=== PATIENT | male | born 1985 | race African-American/Black ===

== ENCOUNTER 2016-12-23 11:30 | Emergency (ER) | payer OTHER ==
[~2016-12-23] VITALS: Ht 165.1 cm; Wt 73.9 kg
[2016-12-23 11:53] VITALS: BP 118/79
--- NOTE | 2016-12-23 13:08 | RAD ---
Right shoulder, 3 views, 12/23/2016: History: Shoulder pain No fracture or dislocation is identified. No significant arthritic changes are seen. IMPRESSION: No significant right shoulder abnormality is detected.
[2016-12-23] MEDS ORDERED: BACL10TA PO (13:30)
[2016-12-23] MEDS ORDERED: TRAM-29 PO (13:30)
--- NOTE | 2016-12-23 13:30 | PHYS DOC ---
Past Medical History Past Medical History: No Pertinent History Past Surgical History: No Surgical History Smokin Pack Per Day Alcohol Use: None Drug Use: None Adult General Chief Complaint Chief Complaint: UPPER EXTREMITY PAIN HPI HPI Patient is a 31 year old male who presents with right shoulder pain for 2 weeks. He states that the pain started after doing heavy lifting at work. The pain radiates down the right arm. He denies any weakness or numbness associated with the pain. He was seen at last week and diagnosed with a pulled muscle. He states that they do not perform any x-rays. He was prescribed ibuprofen 600 mg and methocarbamol 500 mg. He states that these medications are not helping to control his pain. He denies any new injury. He does not have a PCP. Review of Systems Review of Systems Constitutional: Denies fever or chills. [] Respiratory: Denies cough or shortness of breath. [] Cardiovascular: Denies chest pain, palpitations or edema. [] Musculoskeletal: Denies back pain. Reports right shoulder pain. Integument: Denies rash or skin lesions. [] Neurologic: Denies headache, focal weakness or sensory changes. [] Allergies Allergies Allergies Coded Allergies Type Severity Reaction Last Updated Verified No Known Drug Allergies 06/25/15 No Physical Exam Physical Exam Constitutional: Well developed, well nourished, no acute distress, non-toxic appearance. [] HENT: Normocephalic, atraumatic, oropharynx moist. [] Eyes: PERRLA, EOMI, conjunctiva normal, no discharge. [] Neck: Normal range of motion, no midline or paraspinal tenderness, supple, no stridor. [] Skin: Warm, dry, no erythema, no rash. [] Back: No midline tenderness, no CVA tenderness. [] Extremities: Right scapular muscle tenderness, ROM intact, no edema. Distal pulses equal bilaterally. Less than 2 second capillary refill in the fingers. Light touch sensation intact distally. FROM of the elbow, wrist, and hand. Neurologic: Alert and oriented X 3, normal motor function, normal sensory function, no focal deficits noted. [] Psychologic: Affect normal, judgement normal, mood normal. [] Current Patient Data Vital Signs Vital Signs Date Time Temp Pulse Resp B/P Pulse Ox O2 Delivery O2 Flow Rate FiO2 12/23/16 11:53 98.1 91 18 99 Room Air 98.1 EKG EKG [] Radiology/Procedures Radiology/Procedures REASON: pain after heavy lifting PROCEDURE: SHOULDER 2+V RIGHT Right shoulder, 3 views, 12/23/2016: History: Shoulder pain No fracture or dislocation is identified. No significant arthritic changes are seen. IMPRESSION: No significant right shoulder abnormality is detected. Course & Med Decision Making Course & Med Decision Making Pertinent Labs and Imaging studies reviewed. (See chart for details) [] Dragon Disclaimer Dragon Disclaimer This electronic medical record was generated, in whole or in part, using a voice recognition dictation system. Departure Departure Impression: Primary Impression: Spasm of thoracic back muscle Additional Impression: Shoulder strain Disposition: HOME, SELF-CARE Condition: STABLE Referrals: NO PCP (PCP) Patient Instructions: Back Pain, Adult, [id number], Shoulder Pain, Easy-to- Read Additional Instructions: Your x-ray did not show any broken bones or dislocations. Please take the prescribed medications as directed. Do not drive or operate heavy machinery while taking pain medication or muscle relaxers. Please follow-up with the orthopedic doctor listed below if your pain continues. Return to the emergency department if you have any new or concerning symptoms. Scripts Baclofen 10 Mg [id number] Mg PO TID MUSCLE RELAXER #30 TAB Ref 0 Prov:JOSEPHINE SANTOS 12/23/16 Tramadol Hcl (Ultram)50 Mg [id number] Mg PO Q6H PRN PAIN #20 TAB Prov:JOSEPHINE SANTOS 12/23/16 Problem Qualifiers JOSEPHINE SANTOS Dec 23, 2016 13:30
== END 2016-12-23 13:36 | disposition home or self-care (01) ==
LOC: ER 11:30
DX: S46.911A Strain of unspecified muscle, fascia and tendon at shoulder and upper arm level, right arm, initial encounter (principal); S29.012A Strain of muscle and tendon of back wall of thorax, initial encounter; F17.200 Nicotine dependence, unspecified, uncomplicated; X50.0XXA Overexertion from strenuous movement or load, initial encounter; Y93.89 Activity, other specified; Y99.8 Other external cause status; Y92.89 Other specified places as the place of occurrence of the external cause
CPT/HCPCS: 73030; 99284

== ENCOUNTER 2017-05-17 09:25 | Emergency (ER) | payer OTHER ==
[~2017-05-17] VITALS: Ht 167.6 cm; Wt 68.0 kg
[~2017-05-17 09:25] MED LIST: BACL10TA PO; TRAM-48 PO
[2017-05-17] MEDS ORDERED: ASPIRIN CHEWABLE 81 MG TABLET. PO ONE (10:00)
[2017-05-17] MEDS ORDERED: ONDANSETRON PF 4 MG/2 ML VIAL. ONE (10:05)
[2017-05-17] MEDS ORDERED: ONDANSETRON PF 4 MG/2 ML VIAL. IV ONE (10:15)
[2017-05-17 10:20] LABS: BASO % 0 % (0-3); EOS % 2 % (0-3); HEMOGLOBIN 16.4 g/dL (13.0-17.5); LYMPH # 1.2 x10^3/uL (1.0-4.8); LYMPH % 16 % (24-48); MEAN CORPUSCULAR HEMOGLOBIN 33 pg (25-35); MEAN CORPUSCULAR HGB CONC 34 g/dL (31-37); MEAN CORPUSCULAR VOLUME 98 fL (79-100); MONO % 8 % (0-9); NEUT % 75 % (31-73); PLATELET COUNT 205 x10^3/uL (140-400); RED BLOOD COUNT 4.99 x10^6/uL (4.30-5.70); RED CELL DISTRIBUTION WIDTH 13.1 % (11.5-14.5); WHITE BLOOD COUNT 7.8 x10^3/uL (4.0-11.0)
[2017-05-17] MEDS ORDERED: IBUP-1027 PO (10:22)
--- NOTE | 2017-05-17 10:22 | PHYS DOC ---
Past Medical History Past Medical History: No Pertinent History Past Surgical History: No Surgical History Alcohol Use: Occasionally Drug Use: None Adult General Chief Complaint Chief Complaint: CHEST PAIN HPI HPI 31-year-old male presenting to the emergency department today with pain in his chest that is nonradiating intermittent present for the past 24 hours and without alleviating factors.The patient denies unilateral leg swelling hemoptysis family or personal history of blood clotting disorders. The pt denies recent immobilization or surgery. Review of systems is negative for nausea vomiting diaphoresis. Negative for hemoptysis, abdominal pain, fevers or chills. All other review of systems is negative unless otherwise noted in history of present illness. ED course: 31-year-old male with chest pain. Vital signs unremarkable. EKG reviewed by myself shows sinus rhythm with a regular rate. [place] normal. ST segments show ST abnormality consistent with benign early re-pole. Repeat EKG performed at 1003 similar to previous. Blood work obtained which was unremarkable. The patient was then discharged home in stable condition to follow up with their primary care physician over the next 2-3 days. They were to return if their symptoms worsened or if they were concerned for any reason. [id number] discharge instructions and return precautions were given. Patient' s questions were answered to their satisfaction. Patient is comfortable plan. Review of Systems Review of Systems SEE ABOVE. Current Medications Current Medications Current Medications Medications (Trade) Dose Ordered Sig/Timbo Start Time Stop Time Status Last Admin Dose Admin Aspirin (Children'S Aspirin) 324 mg 1X ONCE 05/17/17 10:00 05/17/17 10:01 DC 05/17/17 10:09 324 MG Ondansetron HCl (Zofran) 4 mg 1X ONCE 05/17/17 10:15 05/17/17 10:16 DC 05/17/17 10:09 4 MG Allergies Allergies Allergies Coded Allergies Type Severity Reaction Last Updated Verified No Known Drug Allergies 06/25/15 No Physical Exam Physical Exam SEE ABOVE Constitutional: Well developed, well nourished, no acute distress, non-toxic appearance. [] HENT: Normocephalic, atraumatic, bilateral external ears normal, oropharynx moist, no oral exudates, nose normal. [] Eyes: PERRLA, EOMI, conjunctiva normal, no discharge. [] Neck: Normal range of motion, no tenderness, supple, no stridor. [] Cardiovascular:Heart rate regular rhythm, no murmur [] Lungs & Thorax: Bilateral breath sounds clear to auscultation [] Abdomen: Bowel sounds normal, soft, no tenderness, no masses, no pulsatile masses. [] Skin: Warm, dry, no erythema, no rash. [] Back: No tenderness, no CVA tenderness. [] Extremities: No tenderness, no cyanosis, no clubbing, ROM intact, no edema. [] Neurologic: Alert and oriented X 3, normal motor function, normal sensory function, no focal deficits noted. [] Psychologic: Affect normal, judgement normal, mood normal. [] Current Patient Data Vital Signs Vital Signs Date Time Temp Pulse Resp B/P (MAP) Pulse Ox O2 Delivery O2 Flow Rate FiO2 05/17/17 09:27 98.0 68 18 141/71 (94) 97 Room Air 98.0 Lab Values Laboratory Tests Test 05/17/17 10:00 White Blood Count 7.8 x10^3/uL (4.0-11.0) Red Blood Count 4.99 x10^6/uL (4.30-5.70) Hemoglobin 16.4 g/dL (13.0-17.5) Hematocrit 49.0 % (39.0-53.0) Mean Corpuscular Volume 98 fL (79-100) Mean Corpuscular Hemoglobin 33 pg (25-35) Mean Corpuscular Hemoglobin Concent 34 g/dL (31-37) Red Cell Distribution Width 13.1 % (11.5-14.5) Platelet Count 205 x10^3/uL (140-400) Neutrophils (%) (Auto) 75 % (31-73) H Lymphocytes (%) (Auto) 16 % (24-48) L Monocytes (%) (Auto) 8 % (0-9) Eosinophils (%) (Auto) 2 % (0-3) Basophils (%) (Auto) 0 % (0-3) Neutrophils # (Auto) 5.8 x10^3uL (1.8-7.7) Lymphocytes # (Auto) 1.2 x10^3/uL (1.0-4.8) Monocytes # (Auto) 0.6 x10^3/uL (0.0-1.1) Eosinophils # (Auto) 0.1 x10^3/uL (0.0-0.7) Basophils # (Auto) 0.0 x10^3/uL (0.0-0.2) Sodium Level 136 mmol/L (136-145) Potassium Level 4.0 mmol/L (3.5-5.1) Chloride Level 100 mmol/L (98-107) Carbon Dioxide Level 26 mmol/L (21-32) Anion Gap 10 (6-14) Blood Urea Nitrogen 11 mg/dL (8-26) Creatinine 1.0 mg/dL (0.7-1.3) Estimated GFR (Cockcroft-Gault) 106.9 Glucose Level 124 mg/dL (70-99) H Calcium Level 9.6 mg/dL (8.5-10.1) Total Bilirubin 0.5 mg/dL (0.2-1.0) Direct Bilirubin 0.1 mg/dL (0.0-0.2) Aspartate Amino Transferase (AST) 20 U/L (15-37) Alanine Aminotransferase (ALT) 23 U/L (16-63) Alkaline Phosphatase 76 U/L (46-116) Troponin I Quantitative < 0.017 ng/mL (0.000-0.055) Total Protein 7.9 g/dL (6.4-8.2) Albumin 3.8 g/dL (3.4-5.0) Lipase 166 U/L (73-393) Laboratory Tests 05/17/17 10:00 Laboratory Tests 05/17/17 10:00 EKG EKG [] Radiology/Procedures Radiology/Procedures [] Course & Med Decision Making Course & Med Decision Making Pertinent Labs and Imaging studies reviewed. (See chart for details) [] Dragon Disclaimer Dragon Disclaimer This electronic medical record was generated, in whole or in part, using a voice recognition dictation system. Departure Departure Impression: Primary Impression: Chest pain Disposition: HOME, SELF-CARE Condition: STABLE Referrals: NO PCP (PCP) GUY BOLANOS MD Patient Instructions: Chest Pain (Nonspecific) Additional Instructions: Thank you for allowing us to participate in your care today. Followup with your primary care physician in 3 days if your symptoms do not improve. Call your Primary Doctor tomorrow and inform them of your visit today. If you do not have a primary care provider you can ask for a list of our primary care providers. Return to the emergency department you have any new or concerning findings. This should be evaluated by the primary care physician and any necessary consulting services for continued management within a few days after discharge. Return to emergency room if you have any new or concerning symptoms including but not limited to fever, chills, nausea, vomiting, intractable pain, any new rashes, chest pain, shortness of air, uncontrolled bleeding, difficulty breathing, and/or vision loss. Scripts Ibuprofen (IBUPROFEN) 400 Mg Tablet 200 MG PO PRN Q6HRS Y for PAIN, #10 TAB Prov: MAI NEWSOME MD 05/17/17 MAI NEWSOME MD May 17, 2017 10:22
[2017-05-17 10:24] LABS: CALCIUM 9.6 mg/dL (8.5-10.1); GFR 106.9
[2017-05-17 10:35] LABS: ALBUMIN 3.8 g/dL (3.4-5.0); DIRECT BILIRUBIN 0.1 mg/dL (0.0-0.2); TOTAL BILIRUBIN 0.5 mg/dL (0.2-1.0); TOTAL PROTEIN 7.9 g/dL (6.4-8.2)
--- NOTE | 2017-05-17 10:35 | RAD ---
EXAM: CHEST 2 VIEWS History: Mid chest pain COMPARISON: None available. TECHNIQUE: PA and lateral chest radiographs FINDINGS: The cardiomediastinal silhouette is within normal limits. The lungs are clear bilaterally. The costophrenic sulci are clear and well demarcated bilaterally. IMPRESSION: No radiographic evidence of an acute cardiopulmonary abnormality.
[2017-05-17 11:00] VITALS: BP 122/79
--- NOTE | 2017-05-17 13:18 | EKG ---
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
--- NOTE | 2017-05-17 13:28 | EKG ---
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
[2017-05-18] MEDS ORDERED: RANI150T6 PO (00:08)
== END 2017-05-17 11:10 | disposition home or self-care (01) ==
LOC: ER 09:25
DX: R07.89 Other chest pain (principal)
CPT/HCPCS: 36415; 71020; 80048; 80076; 83690; 84484; 85025; 93005; 96374; 99285; J2405

== ENCOUNTER 2017-05-17 20:18 | Emergency (ER) | payer OTHER ==
[~2017-05-17] VITALS: Ht 167.6 cm; Wt 68.0 kg
[~2017-05-17 20:18] MED LIST changes: +IBUP-1027 PO
[2017-05-17 21:40] LABS: BASO % 1 % (0-3); EOS % 2 % (0-3); HEMATOCRIT 45.5 % (39.0-53.0); HEMOGLOBIN 15.6 g/dL (13.0-17.5); LYMPH # 1.9 x10^3/uL (1.0-4.8); LYMPH % 22 % (24-48); MEAN CORPUSCULAR HEMOGLOBIN 34 pg (25-35); MEAN CORPUSCULAR HGB CONC 34 g/dL (31-37); MEAN CORPUSCULAR VOLUME 98 fL (79-100); MONO % 11 % (0-9); NEUT % 66 % (31-73); PLATELET COUNT 195 x10^3/uL (140-400); RED BLOOD COUNT 4.63 x10^6/uL (4.30-5.70); WHITE BLOOD COUNT 8.7 x10^3/uL (4.0-11.0)
[2017-05-17 21:51] LABS: CREATININE 1.1 mg/dL (0.7-1.3); GFR 95.8; POTASSIUM 3.5 mmol/L (3.5-5.1)
[2017-05-17 21:56] LABS: ALBUMIN 3.6 g/dL (3.4-5.0); ALBUMIN/GLOBULIN RATIO 0.9 (1.0-1.7); TOTAL BILIRUBIN 0.6 mg/dL (0.2-1.0); TOTAL PROTEIN 7.5 g/dL (6.4-8.2)
[2017-05-17] MEDS ORDERED: LIDO:MAALOX:DONNATAL 1:1:1 15 ML SINGLE DOSE SWSW ONE (22:00)
[2017-05-17] MEDS ORDERED: ONDANSETRON ODT 4 MG TAB.RAPDIS. PO ONE (22:00)
--- NOTE | 2017-05-17 22:16 | RAD ---
Abdominal ultrasound Limited: Reason for examination: Right upper quadrant/Epigastric pain. No abnormality seen at the pancreas. The pancreatic duct is normal in caliber at 1 mm. No abnormality seen at the inferior vena cava. The liver is normal in size at 14.9 cm without a focal lesion. There is normal portal venous flow. Gallbladder shows no cholelithiasis, sludge or gallbladder wall thickening. Common bile duct is normal in caliber at 2.4 mm. Right kidney measures 9.2 x 4.0 x 4.3 cm in greatest dimension and shows normal cortical medullary differentiation with no mass or hydronephrosis and shows good vascular flow. IMPRESSION: No focal abnormality seen in the right upper quadrant. Electronically signed by: Clara Enamorado MD (05/17/2017 10:13 PM) [facility]
[2017-05-17 23:36] LABS: BILIRUBIN,URINE NEGATIVE (NEG); GLUCOSE,URINE NEGATIVE (NEG); NITRITE,URINE NEGATIVE (NEG); PROTEIN,URINE NEGATIVE (NEG-TRACE)
[2017-05-17 23:40] LABS: BACTERIA,URINE 0 /HPF (0-FEW); RBC,URINE OCC /HPF (0-2); SQUAMOUS EPITHELIAL CELL,UR FEW /LPF
[2017-05-18] MEDS ORDERED: RANI150T6 PO (00:08)
--- NOTE | 2017-05-18 00:08 | PHYS DOC ---
Past Medical History Past Medical History: No Pertinent History Past Surgical History: No Surgical History Alcohol Use: Occasionally Drug Use: None Adult General Chief Complaint Chief Complaint: ABDOMINAL PAIN HPI HPI Patient is a 31 year old male who presents with abdominal pain. The patient has 2 day history of epigastric pain. Denies fevers/chills, nausea, vomiting, diarrhea, constipation, dysuria, hematuria. He was seen here earlier complaining of chest pain, now states more epigastric, denies cough, shortness of breath, lower extremity pain/swelling. Denies previous history of similar symptoms. Denies past medical history or abdominal surgeries. Occasional alcohol use. Review of Systems Review of Systems Constitutional: Denies fever or chills Eyes: Denies change in visual acuity HENT: Denies nasal congestion or sore throat Respiratory: Denies cough or shortness of breath Cardiovascular: Denies chest pain or edema GI: Reports abdominal pain, denies nausea, vomiting, bloody stools or diarrhea : Denies dysuria or hematuria Musculoskeletal: Denies back pain or joint pain Integument: Denies rash or skin lesions Neurologic: Denies headache, focal weakness or sensory changes Current Medications Current Medications Current Medications Medications (Trade) Dose Ordered Sig/Timbo Start Time Stop Time Status Last Admin Dose Admin Multi-Ingredient Mouthwash/Gargle (Gi Cocktail Single Dose) 15 ml 1X ONCE 05/17/17 22:00 05/17/17 22:01 DC 05/17/17 22:00 15 ML Ondansetron HCl (Zofran Odt) 4 mg 1X ONCE 05/17/17 22:00 05/17/17 22:01 DC 05/17/17 22:00 4 MG Allergies Allergies Allergies Coded Allergies Type Severity Reaction Last Updated Verified No Known Drug Allergies 06/25/15 No Physical Exam Physical Exam Constitutional: Well developed, well nourished, no acute distress, non-toxic appearance. HENT: Normocephalic, atraumatic, bilateral external ears normal, oropharynx moist, nose normal. Eyes: PERRLA, EOMI, conjunctiva normal, no discharge. Neck: supple, no stridor. Cardiovascular: RRR, no murmurs, no edema. Lungs & Thorax: LCTAB, no wheezing, no respiratory distress. Abdomen: soft, epigastric pain with palpation, no rebound/guarding, no masses or pulsatile masses, nondistended. Skin: Warm, dry, no erythema, no rash. Back: No CVA tenderness. Extremities: No tenderness, no edema. Neurologic: Alert and oriented X 3, no focal deficits noted. Psychologic: Affect normal, judgement normal, mood normal. Current Patient Data Vital Signs Vital Signs Date Time Temp Pulse Resp B/P (MAP) Pulse Ox O2 Delivery O2 Flow Rate FiO2 05/18/17 00:20 58 14 131/63 (85) 100 05/17/17 20:46 98.3 Room Air 98.3 Lab Values Laboratory Tests Test 05/17/17 21:30 05/17/17 23:32 White Blood Count 8.7 x10^3/uL (4.0-11.0) Red Blood Count 4.63 x10^6/uL (4.30-5.70) Hemoglobin 15.6 g/dL (13.0-17.5) Hematocrit 45.5 % (39.0-53.0) Mean Corpuscular Volume 98 fL (79-100) Mean Corpuscular Hemoglobin 34 pg (25-35) Mean Corpuscular Hemoglobin Concent 34 g/dL (31-37) Red Cell Distribution Width 13.0 % (11.5-14.5) Platelet Count 195 x10^3/uL (140-400) Neutrophils (%) (Auto) 66 % (31-73) Lymphocytes (%) (Auto) 22 % (24-48) L Monocytes (%) (Auto) 11 % (0-9) H Eosinophils (%) (Auto) 2 % (0-3) Basophils (%) (Auto) 1 % (0-3) Neutrophils # (Auto) 5.7 x10^3uL (1.8-7.7) Lymphocytes # (Auto) 1.9 x10^3/uL (1.0-4.8) Monocytes # (Auto) 0.9 x10^3/uL (0.0-1.1) Eosinophils # (Auto) 0.2 x10^3/uL (0.0-0.7) Basophils # (Auto) 0.0 x10^3/uL (0.0-0.2) Sodium Level 138 mmol/L (136-145) Potassium Level 3.5 mmol/L (3.5-5.1) Chloride Level 99 mmol/L (98-107) Carbon Dioxide Level 28 mmol/L (21-32) Anion Gap 11 (6-14) Blood Urea Nitrogen 9 mg/dL (8-26) Creatinine 1.1 mg/dL (0.7-1.3) Estimated GFR (Cockcroft-Gault) 95.8 BUN/Creatinine Ratio 8 (6-20) Glucose Level 132 mg/dL (70-99) H Calcium Level 9.0 mg/dL (8.5-10.1) Total Bilirubin 0.6 mg/dL (0.2-1.0) Aspartate Amino Transferase (AST) 15 U/L (15-37) Alanine Aminotransferase (ALT) 22 U/L (16-63) Alkaline Phosphatase 73 U/L (46-116) Troponin I Quantitative < 0.017 ng/mL (0.000-0.055) Total Protein 7.5 g/dL (6.4-8.2) Albumin 3.6 g/dL (3.4-5.0) Albumin/Globulin Ratio 0.9 (1.0-1.7) L Lipase 165 U/L (73-393) Urine Collection Type Unknown Urine Color Yellow Urine Clarity Clear Urine pH 6.0 Urine Specific [place] 1.020 Urine Protein Negative mg/dL (NEG-TRACE) Urine Glucose (UA) Negative mg/dL (NEG) Urine Ketones (Stick) Negative mg/dL (NEG) Urine Blood Negative (NEG) Urine Nitrite Negative (NEG) Urine Bilirubin Negative (NEG) Urine Urobilinogen Dipstick 1.0 mg/dL (0.2 mg/dL) Urine Leukocyte Esterase Negative (NEG) Urine RBC Occ /HPF (0-2) Urine WBC 1-4 /HPF (0-4) Urine Squamous Epithelial Cells Few /LPF Urine Bacteria 0 /HPF (0-FEW) Urine Mucus Mod /LPF Laboratory Tests 05/17/17 21:30 Laboratory Tests 05/17/17 21:30 EKG EKG interpreted by me: NSR rate 58, early repolarization, no acute ST/T wave changes, normal intervals, no ectopy.[] Radiology/Procedures Radiology/Procedures PROCEDURE: ABDOMEN LTD Abdominal ultrasound Limited: Reason for examination: Right upper quadrant/Epigastric pain. No abnormality seen at the pancreas. The pancreatic duct is normal in caliber at 1 mm. No abnormality seen at the inferior vena cava. The liver is normal in size at 14.9 cm without a focal lesion. There is normal portal venous flow. Gallbladder shows no cholelithiasis, sludge or gallbladder wall thickening. Common bile duct is normal in caliber at 2.4 mm. Right kidney measures 9.2 x 4.0 x 4.3 cm in greatest dimension and shows normal cortical medullary differentiation with no mass or hydronephrosis and shows good vascular flow. IMPRESSION: No focal abnormality seen in the right upper quadrant. Electronically signed by: Clara Doss MD (05/17/2017 10:13 PM) [facility] DICTATED and SIGNED BY: CLARA DOSS MD DATE: 05/17/172209[] Course & Med Decision Making Course & Med Decision Making Pertinent Labs and Imaging studies reviewed. (See chart for details) The patient presents with epigastric pain. Gave GI cocktail. Obtained labs, EKG , ultrasound. No evidence of acute abnormality. Patient seen earlier for chest pain and had negative cardiac evaluation at that time, no new findings this time. He felt better after treatment here. Recommend continued supportive care with rest, by mouth hydration, gave prescription for Zantac to take as needed. Avoid spicy foods and alcohol. Follow-up with Dr. Cantu in the primary care clinic and Dr. Armenta in the GI clinic. Return to the emergency department for high fever, severe pain, uncontrolled vomiting, any otherwise worsening condition. Discharged home in stable condition. Dragon Disclaimer Dragon Disclaimer This electronic medical record was generated, in whole or in part, using a voice recognition dictation system. Departure Departure Impression: Primary Impression: Abdominal pain Disposition: 01 HOME, SELF-CARE Condition: STABLE Referrals: NO PCP (PCP) MILTON CANTU MD,GUY Kauffman MD Patient Instructions: Abdominal Pain, [id number] Additional Instructions: You were seen in the emergency department today for abdominal pain. Tests here did not show serious cause of symptoms. Please rest, drink fluids, use Zantac. Follow-up with Dr. Cantu in the primary care clinic and Dr. Armenta in the GI clinic, ideally make an appointment within the next 2-3 days. Return to the emergency department for high fever, severe pain, uncontrolled vomiting, any otherwise worsening condition. Scripts Ranitidine Hcl (ZANTAC) 150 Mg Tablet 150 MG PO DAILY, #15 TAB Prov: GARETH LANDRUM MD 05/18/17 Problem Qualifiers Primary Impression: Abdominal pain Abdominal location: epigastric Qualified Codes: R10.13 - Epigastric pain GARETH LANDRUM MD May 18, 2017 00:08
[2017-05-18 00:20] VITALS: BP 131/63
--- NOTE | 2017-05-18 07:48 | EKG ---
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
== END 2017-05-18 00:20 | disposition home or self-care (01) ==
LOC: ER 20:18
DX: R10.13 Epigastric pain (principal); R07.89 Other chest pain
CPT/HCPCS: 36415; 76705; 80053; 81001; 83690; 84484; 85025; 93005; 99285; Q0162

== ENCOUNTER 2017-08-09 09:35 | Emergency (ER) | payer OTHER ==
[~2017-08-09] VITALS: Ht 167.6 cm; Wt 65.8 kg
[~2017-08-09 09:35] MED LIST changes: +RANI150T6 PO
[2017-08-09 09:51] VITALS: BP 131/79
[2017-08-09] MEDS ORDERED: DIPHTH,PERTUSS(ACELL),TET TOX 0.5 ML DISP.SYRIN. VAX IM ONE (10:00)
--- NOTE | 2017-08-09 11:04 | RAD ---
CT head Indication:fell with loss of consciousness on Wednesday, facial swelling Technique: CT head without IV contrast Comparison: None Findings: No pathologic extra-axial or intra-axial fluid collection. No midline shift. The ventricles and basal cisterns are within normal limits. No acute intracranial lead. No focal loss of hernandez-white differentiation. No acute fractures. Visualized paranasal sinuses and mastoid and cells are clear. Impression: No acute intracranial process. CT maxillofacial bones Indication: Right eye trauma. Facial swelling. Technique: CT of the maxillofacial bones without IV contrast with multiplanar reformats. Comparison: None Findings: No acute fractures or dislocation. The globes, lenses and extra ocular muscles are within normal limits. Soft tissue swelling noted overlying right anterolateral frontal bone above the right orbit. The nasopharynx, oropharynx and hypopharynx are within normal limits. No bulky cervical adenopathy. Mucus retention cysts or polyps are seen within right maxillary sinus. Rest of the paranasal sinuses and mastoid air cells are clear. TMJs are within normal limits. No mandibular fracture. There is loss of normal cervical lordosis. This is likely due to positioning. The visualized cervical spine demonstrates no acute fracture. Atlantoaxial joint ovary is preserved. Impression: 1. No acute fractures. 2. Mild soft tissue swelling overlying the right anterolateral frontal bone just above the right orbit. PQRS Compliance Statement: One or more of the following individualized dose reduction techniques were utilized for this examination: 1. Automated exposure control 2. Adjustment of the mA and/or kV according to patient size 3. Use of iterative reconstruction technique
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
== END 2017-08-09 12:14 | disposition home or self-care (01) ==
LOC: ER 09:35
DX: S05.11XA Contusion of eyeball and orbital tissues, right eye, initial encounter (principal); W18.39XA Other fall on same level, initial encounter; Y93.89 Activity, other specified; Y99.8 Other external cause status; Y92.89 Other specified places as the place of occurrence of the external cause
CPT/HCPCS: 70450; 70486; 90471; 90715; 99284-25